=== PATIENT | female | born 1985 | race Caucasian/White ===

== ENCOUNTER 2016-10-05 02:30 | Inpatient (IN) | payer OTHER ==
[2016-10-05] VITALS (9 sets, daily range): BP systolic 113–131; BP diastolic 65–74
[~2016-10-05] VITALS: Ht 160 cm; Wt 60.7 kg
[~2016-10-05 02:30] MED LIST: ENDOCET 5-3251 EACH PO; IBUPROFEN800 MG PO
[2016-10-05] MEDS ORDERED: MOTRIN800 MG PO (03:40)
[2016-10-05] MEDS ORDERED: PRENATAL TABLE1 EAC3 PO (06:24)
[2016-10-06 07:51] VITALS: BP 128/70
== END 2016-10-06 13:30 | disposition home or self-care (01) | DRG 775 ==
LOC: LDRP-OP 02:30 → 2WEST 02:31 → LDRP-OP 11-03 15:26
PROC: 10E0XZZ Delivery of Products of Conception, External Approach (ICD-10-PCS; principal; 2016-10-05)
DX: O62.3 Precipitate labor (principal); O09.33 Supervision of pregnancy with insufficient antenatal care, third trimester; Z3A.40 40 weeks gestation of pregnancy; Z37.0 Single live birth
CPT/HCPCS: J2590